=== PATIENT | male | born 1950 | race Caucasian/White ===

== ENCOUNTER 2022-04-12 13:30 | Inpatient (IN) | payer MEDICARE, BC ==
[~2022-04-12] VITALS: Ht 188 cm; Wt 57.2 kg
[2022-04-12 14:16] LABS: HEMATOCRIT 32.2 % (36.7-47.1); MEAN CORPUSCULAR HEMOGLOBIN 37.3 uug (23.8-33.4); PLATELET COUNT (AUTO) 134 K/uL (152-348)
[2022-04-12 14:27] LABS: ETHANOL < 3 MG/DL (0-0)
[2022-04-12 14:41] LABS: ALANINE AMINOTRANSFERASE 113 U/L (16-63); ALKALINE PHOSPHATASE 60 U/L (50-136); ASPARTATE AMINOTRANSFERASE 124 U/L (15-37); BILIRUBIN,DIRECT 0.9 mg/dL (0.0-0.2); BILIRUBIN,TOTAL 2.9 mg/dL (0.2-1.0); CARBON DIOXIDE 21 mmol/L (21-32); CHLORIDE 97 mmol/L (98-107); GLUCOSE 149 mg/dL (74-106); POTASSIUM 4.7 mmol/L (3.5-5.1); UREA NITROGEN, BLOOD 28 mg/dL (7-18)
[2022-04-12 14:46] LABS: ACETAMINOPHEN < 10.0 ug/mL (10-30)
[2022-04-12] MEDS ORDERED: IV NORMAL SALINE 1000 ML BAG IV ONE (15:00)
[2022-04-12] MEDS ORDERED: MAGNESIUM SULFATE/D5W 100 ML IV SCH (15:00)
[2022-04-12] MEDS ORDERED: MAGNESIUM SULFATE/D5W 100 ML ONE (15:06)
[2022-04-12] MEDS ORDERED: LORAZEPAM 0.5 MG TABLET PO ONE ×2 (15:15→17:30)
[2022-04-12] MEDS ORDERED: LORAZEPAM 1 MG TABLET ONE ×2 (15:20→18:13)
--- NOTE | 2022-04-12 16:14 | NUR ---
Patient is resting comfortably in bed with eyes closed< NAD noted.
[2022-04-12 16:49] LABS: *BILIRUBIN,URIN 1+ (NEGATIVE); *BLOOD, URINE NEGATIVE (NEGATIVE); *CLARITY,URINE CLEAR (CLEAR); *COLOR,URINE YELLOW (YELLOW); *KETONES,URINE 4+ (NEGATIVE); LEUKOCYTE ESTERASE ,URINE TRACE (NEGATIVE); NITRITE, URINE NEGATIVE (NEGATIVE); PH,URINE 5.5 (5.0-8.0); UGLUCOSE NEGATIVE (NEGATIVE)
[2022-04-12 17:05] LABS: *AMPHETAMINE, URINE NEGATIVE (NEGATIVE); *CANNABINOID, URINE NEGATIVE (NEGATIVE); *COCCAINE, URINE NEGATIVE (NEGATIVE); *OPIATE, URINE NEGATIVE (NEGATIVE); *PHENCYCLIDINE SCREEN,URINE NEGATIVE (NEGATIVE)
[2022-04-12 17:11] LABS: BACTERIA,URINE FEW /HPF (NONE SEEN); RBC,URINE 0-3 /HPF (0-3); SQUAMOUS EPITHELIAL CELL,UR FEW /HPF (NONE SEEN)
[2022-04-12] MEDS ORDERED: CEphaleXIN 500 MG CAPSULE PO ONE (17:30)
[2022-04-12] MEDS ORDERED: CEphaleXIN 500 MG CAPSULE ONE (18:13)
--- NOTE | 2022-04-12 18:19 | NUR ---
Pt is medically cleared by Dr Archuleta.
--- NOTE | 2022-04-12 19:25 | NUR ---
Change of shift report recieved from Ernestina WADSWORTH.
--- NOTE | 2022-04-12 21:30 | NUR ---
Report given to Danae WADSWORTH.
[2022-04-12] MEDS ORDERED: MAGNESIUM HYDROXIDE 30 ML LIQUID UDC PO PRN (21:45)
[2022-04-12] MEDS ORDERED: ACETAMINOPHEN 325 MG TABLET PO PRN (21:45)
[2022-04-12] MEDS ORDERED: LORAZEPAM 1 MG TABLET PO PRN (21:45)
[2022-04-12] MEDS ORDERED: MAG HYDROX/AL HYDROX/SIMETH 30 ML LIQUID UDC PO PRN (21:45)
--- NOTE | 2022-04-12 22:00 | NUR ---
Pt. admitted to MHU rm 140a , under care of Dr. Perez. Belongs List completed Nurse Danae RN aware of patient's arrival to unit.
[2022-04-12] MEDS ORDERED: ALPR0.5T8 PO (22:31)
[2022-04-12 22:50] VITALS: BP 105/62
[2022-04-12] MEDS: ZOLPIDEM 5 MG TABLET PO PRN (22:55)
--- NOTE | 2022-04-12 23:30 | NUR ---
ADMISSION NOTE: AT APPROX 2230 ADMITTED 71 years old male to [facility] on a 5150 hold for GD and DTS. Per hold, patient lives at his home. His family called 911 due to patient has been increasingly depressed since his passes away in 07/2021. He has been drinking in excess daily and was found disoriented and fallen around the house several times. He has made statement he wants to go be with his . His hold will on 04/15/22 at 1200. Upon admission, patient is A/O x3 his gait is unsteady, he is calm and cooperative, he appears depressed. Patient is able to comply with the admission process. upon interview, patient reflects what is sports book writer in the hold, he stated, "I am here because i have been drinking vodka too much since my is gone". patient denied SI/HI/VH/AH, he is able to verbally CFS. Patient was advised of his hold and advisement given. he was given the booklet for patient's rights when in a mental health facility as well. shower was provided as well as PO fluids and snacks. skin assessment done, two abrasion noted on right wrist and a bruise on his right elbow was also noted. all his belongings were inventoried and secured in a locked closet. patient was educated on the unit rules, his room roommate and bathroom. he is under the care of Dr Florez and Camille. Will continue with Q15 min checks.
--- NOTE | 2022-04-13 00:27 | NUR ---
GPS: Pt.asleep at this time. Sleeping pill given earlier was effective. Resp.even and unlabored. Will continue to monitor for s/s of alcohol withdrawal.
[2022-04-13 07:30] VITALS: BP 100/50
[2022-04-13] MEDS: NICOTINE 21 MG/24HR PATCH TD SCH (08:26)
[2022-04-13] MEDS ORDERED: DIAZEPAM 5 MG TABLET PO PRN (09:00)
[2022-04-13] MEDS ORDERED: ESCI10TA PO (12:10)
[2022-04-13] MEDS: SERTRALINE HCL 50 MG TABLET PO SCH (12:21)
[2022-04-13] MEDS: MULTIVITAMINS,THERAPEUTIC TABLET PO SCH (12:21)
[2022-04-13] MEDS: THIAMINE HCL 100 MG TABLET PO SCH (12:21)
[2022-04-13] MEDS: ENSURE ENLIVE (VAN) 240 ML LIQUID PO SCH (12:28)
[2022-04-13] MEDS: FOLIC ACID 1 MG TABLET PO SCH (13:26)
[2022-04-13] MEDS ORDERED: NICOTINE 21 MG/24HR PATCH TD SCH (14:00)
--- NOTE | 2022-04-13 14:06 | NUR ---
NICHOLAS Family Contact: NICHOLAS briefly spoke with pt's daughter, Carmen ([phone]) during visitation hours who stated pt's long hx with alcohol abuse. NICHOLAS stated this group underwriter will be in contact with her next week for further discharge updates.
[2022-04-13 15:11] VITALS: BP 109/62
--- NOTE | 2022-04-13 16:20 | NUR ---
NICHOLAS Initial Discharge Note: Pt currently resides at home alone located at [address] [place], [place] [id number]. No contact number. NICHOLAS briefly spoke with pt's daughter, Carmen during visitation hours who stated pt's long hx with alcohol abuse. NICHOLAS will continue to work with pt, family and MD to ensure a safe and proper discharge plan.
--- NOTE | 2022-04-13 16:25 | NUR ---
Firearms Report: Student Affairs Dean completed and submitted a DOJ firearms report for 5150 a danger to himself and grave disability certifications. A copy of report has been placed in patient chart.
--- NOTE | 2022-04-13 17:55 | NUR ---
Received patient is alert and oriented x4, with flat affect isolative withdrawn no interaction with peers. feels hopeless and helpless ,refused to attend in group activity.stay in bed most of time will close to monitoring.
[2022-04-13] MEDS: ZOLPIDEM 5 MG TABLET PO PRN (20:26)
[2022-04-13] MEDS: DIAZEPAM 5 MG TABLET PO PRN (21:42)
[2022-04-13 22:03] VITALS: BP 118/62
--- NOTE | 2022-04-14 04:31 | NUR ---
Received patient in room, awake, A&Ox3. Denies SI, with safety contract w/ show card writer. V/s is w/in baseline, c/o back pain 02/21. Motrin give prn. He is isolative and only interact when engaged. He remains med compliant. He slept mostly during shift. no distress noted. Closely monitoring observed.
--- NOTE | 2022-04-14 04:52 | NUR ---
GPS NOTES: Room transfer done as per patient's request d/t unable to sleep as his room mate is snoring loudly.
[2022-04-14 07:30] VITALS: BP 126/71
[2022-04-14 08:31] LABS: BILIRUBIN,DIRECT 0.5 mg/dL (0.0-0.2); CREATININE 0.8 mg/dL (0.6-1.3); POTASSIUM 3.9 mmol/L (3.5-5.1); TOTAL PROTEIN, SERUM 6.2 g/dL (6.4-8.2)
[2022-04-14] MEDS: NICOTINE 21 MG/24HR PATCH TD SCH (09:01)
[2022-04-14] MEDS: FOLIC ACID 1 MG TABLET PO SCH (09:01)
[2022-04-14] MEDS: SERTRALINE HCL 50 MG TABLET PO SCH (09:01)
[2022-04-14] MEDS: MULTIVITAMINS,THERAPEUTIC TABLET PO SCH (09:01)
[2022-04-14] MEDS: THIAMINE HCL 100 MG TABLET PO SCH (09:01)
[2022-04-14] MEDS: ENSURE ENLIVE (VAN) 240 ML LIQUID PO SCH ×2 (09:03→16:11)
[2022-04-14 09:07] LABS: THYROID STIMULATING HORMONE 2.898 mIU/mL (0.358-3.740)
--- NOTE | 2022-04-14 15:09 | NUR ---
GPS: Nursing Notes: Mood Disturbance: Depression: Patient is awake and responding to his name, forgetful at times, but A/Ox3, compliant with his medications, depressed mood and anxious affect, believes that he is getting discharge today, redirected during shift, episodes of constantly asking the same question over and over again, unable to formulate a viable plan for self care, redirected during shift, stated "No, I don't to hurt myself.. Yes, I know why I am here..", gets easily irritable when questioned by staff, needs prompting to participate in therapeutic groups, continue to monitor for safety, continue with treatment plan.
[2022-04-14 16:19] VITALS: BP 128/68
[2022-04-14 19:41] VITALS: BP 131/71
[2022-04-14] MEDS: DIAZEPAM 5 MG TABLET PO PRN (20:04)
[2022-04-14] MEDS: ZOLPIDEM 5 MG TABLET PO PRN (20:44)
--- NOTE | 2022-04-15 03:34 | NUR ---
GPS NOTES: Patient is noted to be anxious at the beginning of the shift, asking multiple times abt. his court hearing and released date, advised patient that court is not open until Saturday. He is noted to be forgetful. He requested PRn valium and ambien, with effectivity. Patient remains in his room, quiet and isolative. Sleeping intermittently. Frequent monitoring done. Safety precautions in place.
[2022-04-15 07:51] VITALS: BP 119/71
[2022-04-15] MEDS: MULTIVITAMINS,THERAPEUTIC TABLET PO SCH (08:30)
[2022-04-15] MEDS: ENSURE ENLIVE (VAN) 240 ML LIQUID PO SCH ×2 (08:31→16:12)
[2022-04-15] MEDS: SERTRALINE HCL 50 MG TABLET PO SCH (08:31)
[2022-04-15] MEDS: NICOTINE 21 MG/24HR PATCH TD SCH (08:31)
[2022-04-15] MEDS: THIAMINE HCL 100 MG TABLET PO SCH (08:31)
[2022-04-15] MEDS: FOLIC ACID 1 MG TABLET PO SCH (08:31)
--- NOTE | 2022-04-15 10:59 | NUR ---
GPS: Nursing Notes: Destructive Behavior To Self: Patient is awake and responding to his name, gets easily anxious when redirected, impaired judgment, disoriented, poor insight, forgetful, constantly asking the same questioned to different staff, stated "He never explained this to me..", believes that he is fine and wants to go home, overly demanding at times, depressed mood and anxious affect, unable to formulate a viable plan for self care, continue to monitor for safety, verbally babita for safety, denies SI/HI, continue with treatment plan.
[2022-04-15] MEDS ORDERED: MECLIZINE HCL 25 MG TABLET PO PRN (13:15)
[2022-04-15] MEDS: DIAZEPAM 5 MG TABLET PO PRN ×2 (14:30→23:16)
[2022-04-15 17:04] VITALS: BP 110/70
[2022-04-15 20:16] VITALS: BP 115/70
[2022-04-15] MEDS: ZOLPIDEM 5 MG TABLET PO PRN (21:09)
[2022-04-16 08:39] VITALS: BP 107/56
[2022-04-16] MEDS: THIAMINE HCL 100 MG TABLET PO SCH (08:41)
[2022-04-16] MEDS: FOLIC ACID 1 MG TABLET PO SCH (08:41)
[2022-04-16] MEDS: MULTIVITAMINS,THERAPEUTIC TABLET PO SCH (08:41)
[2022-04-16] MEDS: SERTRALINE HCL 50 MG TABLET PO SCH (08:42)
[2022-04-16] MEDS: ENSURE ENLIVE (VAN) 240 ML LIQUID PO SCH ×2 (08:42→16:19)
[2022-04-16] MEDS: NICOTINE 21 MG/24HR PATCH TD SCH (08:42)
--- NOTE | 2022-04-16 12:38 | NUR ---
GPS: Nursing Notes: Mood Disturbance: Depression: Patient is awake and responding to his name, needs prompting to participate in therapeutic groups, isolative and withdrawn in his room, low energy level, depressed mood and sad affect, A/Ox3, but forgetful, stated "I want to go home.." redirected during shift, unable to formulate a viable plan for self care, continue to monitor for safety, continue with treatment plan.
[2022-04-16 15:03] VITALS: BP 114/66
[2022-04-16] MEDS: DIAZEPAM 5 MG TABLET PO PRN (19:52)
[2022-04-16 20:00] VITALS: BP 101/68
[2022-04-16] MEDS: ZOLPIDEM 5 MG TABLET PO PRN (20:32)
[2022-04-17 07:30] VITALS: BP 104/69
[2022-04-17] MEDS: ENSURE ENLIVE (VAN) 240 ML LIQUID PO SCH ×2 (08:31→16:17)
[2022-04-17] MEDS: DIAZEPAM 5 MG TABLET PO PRN ×2 (08:32→16:34)
[2022-04-17] MEDS: THIAMINE HCL 100 MG TABLET PO SCH (08:32)
[2022-04-17] MEDS: MULTIVITAMINS,THERAPEUTIC TABLET PO SCH (08:32)
[2022-04-17] MEDS: FOLIC ACID 1 MG TABLET PO SCH (08:32)
[2022-04-17] MEDS: NICOTINE 21 MG/24HR PATCH TD SCH (08:32)
[2022-04-17] MEDS: SERTRALINE HCL 50 MG TABLET PO SCH (08:32)
--- NOTE | 2022-04-17 13:41 | NUR ---
GPS: Nursing Notes: Mood Disturbance: Depression: Patient is awake and responding to his name, depressed mood and sad affect, needs prompting to participate in therapeutic groups, forgetful at times, low energy level, showered and shaved today, assisted with ADL's, denies SI, stated "I want to go home..", "I don't want to hurt myself..", unable to formulate a viable plan for self care, continue to monitor for safety, continue with treatment plan.
[2022-04-17 15:28] VITALS: BP 90/54
[2022-04-17 19:48] VITALS: BP 90/55
[2022-04-17 20:29] VITALS: BP 122/59
[2022-04-17] MEDS: ZOLPIDEM 5 MG TABLET PO PRN (20:32)
--- NOTE | 2022-04-17 22:33 | NUR ---
GPS: Remains anxious,depressed and sad. Re-assured prn. Denies having a plan to harm self. Meds.as ordered. Interacting with select peers earlier. Safe environment provided. Will continue to monitor.
[2022-04-18 07:30] VITALS: BP 110/63
[2022-04-18] MEDS: ENSURE ENLIVE (VAN) 240 ML LIQUID PO SCH ×2 (08:00→17:00)
--- NOTE | 2022-04-18 09:15 | NUR ---
SW Discharge Update: Pt's psychiatrist, Dr. Florez informed this residential mortgage underwriter that pt's discharge is cancelled due to pt not cleared for discharge. Per Dr. Florez, pt will continue to be evaluated until Saturday for possible discharge. Pt's daughter, Carmen ([phone]) is aware and agreeable.
[2022-04-18] MEDS: MULTIVITAMINS,THERAPEUTIC TABLET PO SCH (10:55)
[2022-04-18] MEDS: SERTRALINE HCL 50 MG TABLET PO SCH (10:56)
[2022-04-18] MEDS: NICOTINE 21 MG/24HR PATCH TD SCH (10:56)
[2022-04-18] MEDS: FOLIC ACID 1 MG TABLET PO SCH (10:56)
[2022-04-18] MEDS: THIAMINE HCL 100 MG TABLET PO SCH (10:59)
[2022-04-18] MEDS ORDERED: DIAZEPAM 5 MG TABLET PO PRN (12:10)
--- NOTE | 2022-04-18 13:59 | NUR ---
NICHOLAS Discharge Update: NICHOLAS spoke with pt's daughter, Carmen ([phone]) who confirmed pt returning to her home n Saturday under her and her 's care. Carmen stated she will be able to provide transportation at 11AM for the pt from [facility] to her home located at [address] [place], [place] [id number]. Pt is aware and agreeable.
[2022-04-18 16:00] VITALS: BP 95/51
[2022-04-18] MEDS ORDERED: BLOOD SUGAR DIAGNOSTIC 1 EACH STRIP VI ONE (19:30)
[2022-04-18] MEDS ORDERED: MAG HYDROX/AL HYDROX/SIMETH 30 ML LIQUID UDC PO PRN (19:30)
[2022-04-18] MEDS ORDERED: LORAZEPAM 0.5 MG TABLET PO PRN (19:30)
[2022-04-18] MEDS ORDERED: ZOLPIDEM 5 MG TABLET PO PRN (19:30)
[2022-04-18] MEDS ORDERED: MAGNESIUM HYDROXIDE 30 ML LIQUID UDC PO PRN (19:30)
[2022-04-18] MEDS ORDERED: ACETAMINOPHEN 325 MG TABLET PO PRN (19:30)
[2022-04-18 20:00] VITALS: BP 106/67
[2022-04-18] MEDS: ZOLPIDEM 5 MG TABLET PO PRN (21:42)
[2022-04-19] MEDS: HYDROXYZINE PAMOATE 25 MG CAPSULE PO PRN ×2 (02:18→15:54)
[2022-04-19 07:30] VITALS: BP 108/62
[2022-04-19] MEDS: THIAMINE HCL 100 MG TABLET PO SCH (09:09)
[2022-04-19] MEDS: FOLIC ACID 1 MG TABLET PO SCH (09:09)
[2022-04-19] MEDS: MULTIVITAMINS,THERAPEUTIC TABLET PO SCH (09:10)
[2022-04-19] MEDS: SERTRALINE HCL 50 MG TABLET PO SCH ×2 (09:10→16:03)
[2022-04-19] MEDS: ENSURE ENLIVE (VAN) 240 ML LIQUID PO SCH ×2 (09:11→17:49)
[2022-04-19] MEDS: NICOTINE 21 MG/24HR PATCH TD SCH (09:15)
[2022-04-19] MEDS ORDERED: ENSURE ENLIVE (VAN) 240 ML LIQUID PO SCH (11:00)
--- NOTE | 2022-04-19 11:06 | NUR ---
Gps/Operations Administrator- Isolative, encouraged to attend his group therapy , denies any discomfort. Encouraged attending his group therapy. Cooperative with staff providing his care., guarded , encouraged verbalizations of his feelings .
[2022-04-19 15:49] VITALS: BP 113/65
[2022-04-19 20:02] VITALS: BP 91/53
--- NOTE | 2022-04-19 20:30 | NUR ---
Received patient in the dayroom watching TV. he is noted A/O x 3 able to verbalized his feelings, able to ambulate and make his needs known. Upon interview patient appear depressed, his affect is blunted and his mood is low. He stated, "I am still here because of my problems with drinking but i don't want to hurt myself". patient was reassured for his safety. safety and fall precautions are in place. his V/S are stable, patient in no distress. He was given PO Fluids and snacks. will continue to monitor.
[2022-04-19] MEDS: MELATONIN 3 MG TABLET PO SCH (20:47)
[2022-04-19] MEDS ORDERED: MIRTAZAPINE 15 MG TABLET PO SCH (21:00)
[2022-04-20] MEDS: THIAMINE HCL 100 MG TABLET PO SCH (08:51)
[2022-04-20] MEDS: MULTIVITAMINS,THERAPEUTIC TABLET PO SCH (08:51)
[2022-04-20] MEDS: ENSURE ENLIVE (VAN) 240 ML LIQUID PO SCH ×2 (08:51→16:42)
[2022-04-20] MEDS: SERTRALINE HCL 50 MG TABLET PO SCH ×2 (08:52→16:37)
[2022-04-20] MEDS: FOLIC ACID 1 MG TABLET PO SCH (08:54)
[2022-04-20] MEDS: CALCIUM CARB/VITAMIN D 500MG-200UNITS TABLET PO SCH (08:54)
[2022-04-20] MEDS: NICOTINE 21 MG/24HR PATCH TD SCH (08:55)
[2022-04-20 15:21] VITALS: BP 96/56
[2022-04-20] MEDS: DOCUSATE SODIUM 100 MG CAPSULE PO SCH (16:40)
[2022-04-20 20:08] VITALS: BP 104/58
[2022-04-20] MEDS: MIRTAZAPINE 15 MG TABLET PO SCH (21:11)
[2022-04-20] MEDS: MELATONIN 3 MG TABLET PO SCH (21:11)
--- NOTE | 2022-04-20 23:23 | NUR ---
Received patient in the day room watching TV. he is noted A/O x 3 able to verbalized his feelings, able to ambulate and performed ADLs. Upon interview he is pleasant calm and cooperative with plan of care. He stated, "I am doing much better". he denied SI/HI/VH/AH. he is able to verbally CFS. patient was reassured for his safety. safety and fall precautions are in place. his V/S are stable, patient in no distress. He was given PO Fluids and snacks. will continue to monitor.
[2022-04-21 07:30] VITALS: BP 113/64
[2022-04-21] MEDS: DOCUSATE SODIUM 100 MG CAPSULE PO SCH ×2 (08:31→17:06)
[2022-04-21] MEDS: FOLIC ACID 1 MG TABLET PO SCH (08:32)
[2022-04-21] MEDS: MULTIVITAMINS,THERAPEUTIC TABLET PO SCH (08:32)
[2022-04-21] MEDS: THIAMINE HCL 100 MG TABLET PO SCH (08:32)
[2022-04-21] MEDS: CALCIUM CARB/VITAMIN D 500MG-200UNITS TABLET PO SCH (08:32)
[2022-04-21] MEDS: ENSURE ENLIVE (VAN) 240 ML LIQUID PO SCH ×2 (08:33→17:06)
[2022-04-21] MEDS: NICOTINE 21 MG/24HR PATCH TD SCH (08:33)
[2022-04-21] MEDS: SERTRALINE HCL 50 MG TABLET PO SCH ×2 (08:33→17:06)
--- NOTE | 2022-04-21 12:32 | NUR ---
Gps/Balance Weigher- Interacting fairly well his peears, attended his am group therapy, requested to shaved, assisted by TOOL AND CUTTER GRINDER. Compliant with routine medications, Patient verbalized feeling relieved of his constipation this am.
[2022-04-21 16:00] VITALS: BP 103/54
--- NOTE | 2022-04-21 16:52 | NUR ---
Gps/Intermediate Accountant- Patient's daughter and son-in law were in to visit patient. Interacting fairly well with his peers, continued compliance with his routine medications noted. Adequate fluid intake Able to verbalized feelings and needs. Noted jolly and smiling face at times
[2022-04-21 20:00] VITALS: BP 96/62
[2022-04-21] MEDS: MELATONIN 3 MG TABLET PO SCH (20:35)
[2022-04-21] MEDS: MIRTAZAPINE 15 MG TABLET PO SCH (20:36)
[2022-04-22 07:30] VITALS: BP 99/58
[2022-04-22] MEDS: THIAMINE HCL 100 MG TABLET PO SCH (08:46)
[2022-04-22] MEDS: CALCIUM CARB/VITAMIN D 500MG-200UNITS TABLET PO SCH (08:46)
[2022-04-22] MEDS: SERTRALINE HCL 50 MG TABLET PO SCH ×2 (08:46→16:32)
[2022-04-22] MEDS: DOCUSATE SODIUM 100 MG CAPSULE PO SCH ×2 (08:47→16:32)
[2022-04-22] MEDS: MULTIVITAMINS,THERAPEUTIC TABLET PO SCH (08:47)
[2022-04-22] MEDS: ENSURE ENLIVE (VAN) 240 ML LIQUID PO SCH ×2 (08:47→16:33)
[2022-04-22] MEDS: FOLIC ACID 1 MG TABLET PO SCH (08:48)
[2022-04-22] MEDS: NICOTINE 21 MG/24HR PATCH TD SCH (08:48)
--- NOTE | 2022-04-22 14:54 | NUR ---
Gps/Senior Executive Assistant- Had been in and out of his group therapy , brighter affect, interacting with his peers. Denies S.I., verbalizing needs and feelings.Cooperative ,pleasant affect.
[2022-04-22 16:08] VITALS: BP 96/60
[2022-04-22 20:04] VITALS: BP 103/61
[2022-04-22] MEDS: MIRTAZAPINE 15 MG TABLET PO SCH (21:16)
[2022-04-22] MEDS: MELATONIN 3 MG TABLET PO SCH (21:16)
[2022-04-23 07:30] VITALS: BP 113/65
[2022-04-23] MEDS: MULTIVITAMINS,THERAPEUTIC TABLET PO SCH (08:49)
[2022-04-23] MEDS: FOLIC ACID 1 MG TABLET PO SCH (08:49)
[2022-04-23] MEDS: NICOTINE 21 MG/24HR PATCH TD SCH (08:49)
[2022-04-23] MEDS: SERTRALINE HCL 50 MG TABLET PO SCH ×2 (08:49→17:35)
[2022-04-23] MEDS: DOCUSATE SODIUM 100 MG CAPSULE PO SCH ×2 (08:49→17:35)
[2022-04-23] MEDS: THIAMINE HCL 100 MG TABLET PO SCH (08:49)
[2022-04-23] MEDS: CALCIUM CARB/VITAMIN D 500MG-200UNITS TABLET PO SCH (08:49)
[2022-04-23] MEDS: ENSURE ENLIVE (VAN) 240 ML LIQUID PO SCH ×2 (08:50→17:35)
--- NOTE | 2022-04-23 14:07 | NUR ---
NICHOLAS Referral: NICHOLAS contacted [facility] ([phone]) and left a voicemail for Penny at ext [phone] for a call back regarding new male pt referral for discharge on Saturday.
--- NOTE | 2022-04-23 14:08 | NUR ---
NICHOLAS Discharge Update: NICHOLAS spoke with pt's daughter, Carmen ([phone]) who confirmed pt returning to her home [place] at [id number] [place], [place] [id number] on Saturday at 1PM under her and her 's care. Carmen asked for this video game script writer to follow-up with pt's acceptance to [facility]. This video game script writer informed Carmen that she will update her once available.
--- NOTE | 2022-04-23 14:15 | NUR ---
GPS: Nursing Notes: Mood Disturbance: Depression: Patient is awake and responding to his name, cooperative with nursing care, compliant with his medications, needs prompting to participate in therapeutic groups, believes that he is getting better, stated "I am getting better..", brighter affect, unable to formulate a viable plan for self care at this time, continue to monitor for safety, continue with treatment plan.
--- NOTE | 2022-04-23 15:24 | NUR ---
NICHOLAS Referral: NICHOLAS contacted [facility] again ([phone]) and left a voicemail for Penny at ext [phone] for a call back regarding new male pt referral for discharge on Saturday.
[2022-04-23 15:34] VITALS: BP 107/65
[2022-04-23 20:04] VITALS: BP 112/58
[2022-04-23] MEDS: MELATONIN 3 MG TABLET PO SCH (20:44)
[2022-04-23] MEDS: MIRTAZAPINE 15 MG TABLET PO SCH (20:44)
--- NOTE | 2022-04-24 06:40 | NUR ---
GPS: Pt.slept 6 hrs.last night. Less anxious and depressed and looking forward to his possible discharge on Sat. Re-assured prn. Safe environment provided. Socializes with certain peers. Will continue to monitor.
[2022-04-24 07:30] VITALS: BP 97/61
[2022-04-24] MEDS: HYDROXYZINE PAMOATE 25 MG CAPSULE PO PRN ×2 (08:51→16:26)
[2022-04-24] MEDS: SERTRALINE HCL 50 MG TABLET PO SCH ×2 (09:28→16:14)
[2022-04-24] MEDS: CALCIUM CARB/VITAMIN D 500MG-200UNITS TABLET PO SCH (09:28)
[2022-04-24] MEDS: THIAMINE HCL 100 MG TABLET PO SCH (09:28)
[2022-04-24] MEDS: DOCUSATE SODIUM 100 MG CAPSULE PO SCH ×2 (09:28→17:05)
[2022-04-24] MEDS: NICOTINE 21 MG/24HR PATCH TD SCH (09:28)
[2022-04-24] MEDS: MULTIVITAMINS,THERAPEUTIC TABLET PO SCH (09:29)
[2022-04-24] MEDS: ENSURE ENLIVE (VAN) 240 ML LIQUID PO SCH ×2 (09:29→16:15)
[2022-04-24] MEDS: FOLIC ACID 1 MG TABLET PO SCH (09:29)
[2022-04-24] MEDS ORDERED: PNEUMOCOCCAL 23-VAL P-SAC VAC 0.5 ML VIAL IM ONE (14:00)
[2022-04-24 16:47] VITALS: BP 97/54
--- NOTE | 2022-04-24 17:25 | NUR ---
GPS: Nursing Notes: Mood Disturbance: Depression: Patient is awake and responding to his name, cooperative with nursing care, compliant with his medications, following staff directions, participating in therapeutic groups, believes that he is getting better, brighter affect, interactive with peers, continue to monitor for safety, continue with treatment plan.
[2022-04-24 19:52] VITALS: BP 101/53
[2022-04-24] MEDS: MELATONIN 3 MG TABLET PO SCH (20:19)
[2022-04-24] MEDS: MIRTAZAPINE 15 MG TABLET PO SCH (20:19)
[2022-04-25 07:30] VITALS: BP 110/66
[2022-04-25] MEDS: DOCUSATE SODIUM 100 MG CAPSULE PO SCH (08:12)
[2022-04-25] MEDS: ENSURE ENLIVE (VAN) 240 ML LIQUID PO SCH (08:14)
[2022-04-25] MEDS: FOLIC ACID 1 MG TABLET PO SCH (08:45)
[2022-04-25] MEDS: MULTIVITAMINS,THERAPEUTIC TABLET PO SCH (08:45)
[2022-04-25] MEDS: CALCIUM CARB/VITAMIN D 500MG-200UNITS TABLET PO SCH (08:45)
[2022-04-25] MEDS: THIAMINE HCL 100 MG TABLET PO SCH (08:45)
[2022-04-25] MEDS: SERTRALINE HCL 50 MG TABLET PO SCH (08:45)
[2022-04-25] MEDS: NICOTINE 21 MG/24HR PATCH TD SCH (08:46)
[2022-04-25] MEDS: HYDROXYZINE PAMOATE 25 MG CAPSULE PO PRN (10:34)
--- NOTE | 2022-04-25 11:46 | NUR ---
NICHOLAS Discharge Note: Pt will be discharged to daughters, [facility] located at [address] [place] [id number] ([phone]) via pts daughter, Sarah [phone] transportation at 1PM. NICHOLAS spoke with pts daughterCarmen who states they are ready to accept the patient today. Pt is aware and agreeable with discharge plan. Pt is alert and oriented x4, is unable to plan for self-care at this time. However, pt is willing to accept care at his daughters home under her care. Pt denies any suicidal or homicidal ideation. Pt will follow-up at the facility with [facility] located at [address] [place] [id number] via teletherapy on April 30 at 9AM confirmed by Patti ([phone]). Pt will be assigned a psychiatrist and psychologist after pts consultation. Pt will follow-up with his outpatient Product Support Consultant, Dr. Kelly Hodges. Pt will also follow-up with, psychiatrist, Dr. Florez ([phone]) for a consultation. Pt presents with calm mood and congruent affect. PHARMACY: [facility] [address] [place] [address] ([phone]).
--- NOTE | 2022-04-25 13:15 | NUR ---
Pt was discharged to home with daughter, Carmen. Pt's calm, cooperative, contracts for safety. pt was provided with education material, patient verbalizes understanding. VS are stable. All belongings returned. Pt is in agreement with discharge plan.
== END 2022-04-25 13:15 | disposition home or self-care (01) | DRG 885 ==
LOC: ER 13:30 → GPS 21:41
PROVIDERS: ADMIT Psychiatry & Neurology Psychiatry; ATTEND Nurse Practitioner Family
DX: F33.2 Major depressive disorder, recurrent severe without psychotic features (principal); N39.0 Urinary tract infection, site not specified; E44.1 Mild protein-calorie malnutrition; Z68.1 Body mass index [BMI] 19.9 or less, adult; R45.851 Suicidal ideations; F10.239 Alcohol dependence with withdrawal, unspecified; E83.42 Hypomagnesemia; E86.0 Dehydration; D53.9 Nutritional anemia, unspecified; D69.6 Thrombocytopenia, unspecified; E83.51 Hypocalcemia; E88.09 Other disorders of plasma-protein metabolism, not elsewhere classified; R29.6 Repeated falls; R62.7 Adult failure to thrive; K70.10 Alcoholic hepatitis without ascites; Z20.822 Contact with and (suspected) exposure to COVID-19; Y90.0 Blood alcohol level of less than 20 mg/100 ml; F29 Unspecified psychosis not due to a substance or known physiological condition; Z73.6 Limitation of activities due to disability; F17.210 Nicotine dependence, cigarettes, uncomplicated; Z71.6 Tobacco abuse counseling; F13.90 Sedative, hypnotic, or anxiolytic use, unspecified, uncomplicated
CPT/HCPCS: 36415; 70450; 82747; 83550; 83735; 84443; 84484; 85014; 85025; 87086; 90732; 93005; 97161; A4663; G0480; J3475; J7040